=== PATIENT | female | born 1990 | race Asian ===

== ENCOUNTER 2019-02-28 15:42 | Emergency (ER) | payer OTHER ==
[~2019-02-28] VITALS: Ht 162.6 cm; Wt 44.9 kg
[2019-02-28] MEDS ORDERED: LIDOCAINE 2% 20 ML VIAL. IJ STA (16:34)
--- NOTE | 2019-02-28 16:39 | PHYS DOC ---
Adult General Chief Complaint Chief Complaint: ABSCESS HPI HPI Patient is a 29 year old female who presents with left armpit pain this been ongoing for week. The patient states that she has a bump under her left armpit and that it hurts when it's touched. Review of Systems Review of Systems Constitutional: Denies fever or chills [] Eyes: Denies change in visual acuity, redness, or eye pain [] HENT: Denies nasal congestion or sore throat [] Respiratory: Denies cough or shortness of breath [] Cardiovascular: No additional information not addressed in HPI [] GI: Denies abdominal pain, nausea, vomiting, bloody stools or diarrhea [] : Denies dysuria or hematuria [] Musculoskeletal: Denies back pain or joint pain [] Integument: Reports abscess to L armpit. Neurologic: Denies headache, focal weakness or sensory changes [] Complete systems were reviewed and found to be within normal limits, except as documented in this note. Current Medications Current Medications Current Medications Medications (Trade) Dose Ordered Sig/Cecilia Start Time Stop Time Status Last Admin Dose Admin Lidocaine HCl 20 ml 1X STAT 02/28/19 16:34 02/28/19 17:12 DC Allergies Allergies Allergies Coded Allergies Type Severity Reaction Last Updated Verified No Known Drug Allergies 02/28/19 No Physical Exam Physical Exam Constitutional: Well developed, well nourished, no acute distress, non-toxic appearance. [] HENT: Normocephalic, atraumatic, bilateral external ears normal, oropharynx moist, no oral exudates, nose normal. [] Eyes: PERRLA, EOMI, conjunctiva normal, no discharge. [] Skin: Hard to touch nodule that is tender to touch in L axilla. Warm to touch. Neurologic: Alert and oriented X 3, normal motor function, normal sensory function, no focal deficits noted. [] Psychologic: Affect normal, judgement normal, mood normal. [] Current Patient Data Vital Signs Vital Signs Date Time Temp Pulse Resp B/P (MAP) Pulse Ox O2 Delivery O2 Flow Rate FiO2 02/28/19 17:05 98.8 93 16 127/89 (102) 99 Room Air 98.8 EKG EKG [] Radiology/Procedures Radiology/Procedures [] Course & Med Decision Making Course & Med Decision Making Pertinent Labs and Imaging studies reviewed. (See chart for details) Will perform an I/D on L axillary abscess. Will use 2% lidocaine for numbing. Indication: abscess Procedure: The patient was positioned appropriately. Local anesthesia was 2% lidocaine. An incision was then made over the apex of the lesion and exudate material was expressed. The drainage cavity was irrigated and packed with sterile gauze. The patient tolerated the procedure well. Complications: none. Dragon Disclaimer Dragon Disclaimer This electronic medical record was generated, in whole or in part, using a voice recognition dictation system. Departure Departure Impression: Primary Impression: Abscess of axillary region Disposition: HOME, SELF-CARE Condition: STABLE Referrals: NO PCP (PCP) Patient Instructions: Abscess, Abscess, Care After Additional Instructions: Thank you for visiting [facility]. We appreciate you trusting us with your care. If any additional problems come up don't hesitate to return to visit us. Please follow up with your primary care provider so they can plan additional care if needed and know about the problem that you had. If symptoms worsen come back to the Emergency Department. Any concerning symptoms that start such as chest pain, shortness of air, weakness or numbness on one side of the body, running high fevers or any other concerning symptoms return to the ER. You have been prescribed an antibiotic today to help fight your infection. Please take all of the antibiotic as directed. If after 48 hours the infection is not improving, please return for more care. If the infection worsens, return to ER for additional care. Please take the packing out in 2 days. Scripts Cephalexin (KEFLEX) 500 Mg Capsule 1 CAP PO QID for 7 Days, #28 CAP 0 Refills Prov: ELISSA BILLINGS APRN 02/28/19 ELISSA BILLINGS APRN Feb 28, 2019 16:39
[2019-02-28 17:05] VITALS: BP 127/89
[2019-02-28] MEDS ORDERED: CEPH-264 PO (17:16)
== END 2019-02-28 18:10 | disposition home or self-care (01) ==
LOC: EDSEX 15:42 → ER 15:42
DX: M79.622 Pain in left upper arm (principal)
CPT/HCPCS: 10060; 99283

== ENCOUNTER 2020-04-29 19:07 | Emergency (ER) | payer SELFPAY ==
[~2020-04-29] VITALS: Ht 162.6 cm; Wt 45.5 kg
[~2020-04-29 19:07] MED LIST: CEPH-264 PO
[2020-04-29 20:12] LABS: BILIRUBIN,URINE NEGATIVE (NEG); CLARITY,URINE CLEAR; COLOR,URINE YELLOW; NITRITE,URINE NEGATIVE (NEG); PH,URINE 6.5 (<5.0-8.0); PROTEIN,URINE NEGATIVE (NEG-TRACE); UROBILINOGEN,URINE 0.2 mg/dL (0.2 mg/dL)
[2020-04-29 20:19] LABS: BACTERIA,URINE 0 /HPF (0-FEW); WBC,URINE 0 /HPF (0-4)
--- NOTE | 2020-04-29 20:30 | PHYS DOC ---
Past Medical History Past Medical History: No Pertinent History (SAROJ MART APRN) Past Surgical History: No Surgical History (SAROJ MART APRN) Smoking Status: Never Smoker Alcohol Use: None Drug Use: None (SAROJ MART APRN) General Adult EDM: Chief Complaint: VAGINAL BLEEDING HPI: HPI: Patient is a 30 year old female 1 para 0 currently 9 weeks presenting to the ED today complaining of vaginal bleeding in that began today. Patient states it is a dot of blood noted on her underwear and when she wipes herself. Denies any abdominal pain. Denies any nausea vomiting, she states she has not seen her [employer] yet. Patient speaks some Nigerien though her sister was interpreting for Humberto (SAROJ MART APRN) Review of Systems: Review of Systems: Constitutional: Denies fever or chills. [] Eyes: Denies change in visual acuity. [] HENT: Denies nasal congestion or sore throat. [] Respiratory: Denies cough or shortness of breath. [] Cardiovascular: Denies chest pain or edema. [] GI: Reports vaginal bleeding in . Denies abdominal pain, nausea, vomiting, bloody stools or diarrhea. [] : Denies dysuria. [] Musculoskeletal: Denies back pain or joint pain. [] Integument: Denies rash. [] Neurologic: Denies headache, focal weakness or sensory changes. [] Psychiatric: Denies depression or anxiety. [] (SAROJ MART APRN) Heart Score: Risk Factors: Risk Factors: DM, Current or recent (<one month) smoker, HTN, HLP, family history of CAD, obesity. Risk Scores: Score 0 - 3: 2.5% MACE over next 6 weeks - Discharge Home Score 4 - 6: 20.3% MACE over next 6 weeks - Admit for Clinical Observation Score 7 - 10: 72.7% MACE over next 6 weeks - Early Invasive Strategies (SAROJ MART APRN) Allergies: Allergies: Allergies Coded Allergies Type Severity Reaction Last Updated Verified No Known Drug Allergies 02/28/19 No (SAROJ MART APRN) Physical Exam: PE: Constitutional: Well developed, well nourished, no acute distress, non-toxic appearance. [] HENT: Normocephalic, atraumatic, bilateral external ears normal, oropharynx moist, no oral exudates, nose normal. [] Eyes: PERRLA, EOMI, conjunctiva normal, no discharge. [] Neck: Normal range of motion, no tenderness, supple, no stridor. [] Cardiovascular:Heart rate regular rhythm, no murmur [] Lungs & Thorax: Bilateral breath sounds clear to auscultation [] Abdomen: Bowel sounds normal, soft, no tenderness, no masses, no pulsatile mass es. [] Pelvic exam External pelvic appears normal, cervix is visualized, there is small amount of blood in the cervical os, no CMT, no adnexal tenderness. Skin: Warm, dry, no erythema, no rash. [] Back: No tenderness, no CVA tenderness. [] Extremities: No tenderness, no cyanosis, no clubbing, ROM intact, no edema. [] Neurologic: Alert and oriented X 3, normal motor function, normal sensory function, no focal deficits noted. [] Psychologic: Affect normal, judgement normal, mood normal. [] (SAROJ MART APRN) Current Patient Data: Labs: Laboratory Tests Test 04/29/20 19:13 04/29/20 19:18 Urine Collection Type Unknown Urine Color Yellow Urine Clarity Clear Urine pH 6.5 (<5.0-8.0) Urine Specific [place] <=1.005 (1.000-1.030) Urine Protein Negative mg/dL (NEG-TRACE) Urine Glucose (UA) Negative mg/dL (NEG) Urine Ketones (Stick) Negative mg/dL (NEG) Urine Blood Large (NEG) Urine Nitrite Negative (NEG) Urine Bilirubin Negative (NEG) Urine Urobilinogen Dipstick 0.2 mg/dL (0.2 mg/dL) Urine Leukocyte Esterase Negative (NEG) Urine RBC 1-2 /HPF (0-2) Urine WBC 0 /HPF (0-4) Urine Squamous Epithelial Cells Occ /LPF Urine Bacteria 0 /HPF (0-FEW) POC Urine HCG, Qualitative Hcg positive (Negative) Microbiology 04/29/20 Wet Prep - Final, Complete Vital Signs: Vital Signs Date Time Temp Pulse Resp B/P (MAP) Pulse Ox O2 Delivery O2 Flow Rate FiO2 04/29/20 19:15 98.3 88 20 118/73 (88) 99 Room Air 98.3 (SAROJ MART APRN) EKG: EKG: [] (SAROJ MART APRN) Radiology/Procedures: Radiology/Procedures: []PROCEDURE: OB <14 WKS W/TV Study: US OB <14 WKS +TV DATE: 04/29/2020 7:57 PM INDICATION: Vaginal bleeding. COMPARISON: None. TECHNIQUE: Transabdominal and transvaginal ultrasonography of the pelvis was performed. Color Doppler and duplex were utilized as appropriate. FINDINGS: Abnormally elongated intrauterine gestational sac containing a pole with no detectable heart tones. [place]-rump length measured at 2.51 cm which would correspond to an estimated gestational age of 9 weeks 2 days. The uterus measures 11.5 x 5.5 x 6.8 cm. No uterine parenchymal abnormality. Neither ovary was able to be visualized due to bowel gas. IMPRESSION: 1. Sonographic findings consistent with a failed first trimester with an intrauterine pole exhibiting a crown-rump length of 2.5 cm with no detectable heart tones. 2. Neither ovary was able to be visualized due to bowel gas. Electronically signed by: YOSEF COTTRELL MD (04/29/2020 8:30 PM) [facility] DICTATED and SIGNED BY: YOSEF COTTRELL MD DATE: 04/29/[id number] 0 (SAROJ MART APRN) Course & Med Decision Making: Course & Med Decision Making Pertinent Labs and Imaging studies reviewed. (See chart for details) This is a 30-year-old female patient presenting to the ED today with vaginal bleeding in that began today. Positive urine hCG, beta-hCG 4145. CBC CMP with no acute findings, UA negative. Wet prep negative. OB ultrasound noted for failed IUP. No heart tones. Spoke to patient about her results. Informed that she is having a miscarriage. Recommended bedrest. Follow-up with [employer]. Provided return precautions. (SAROJ MART APRN) [place] Disclaimer: Elisha Disclaimer: This electronic medical record was generated, in whole or in part, using a voice recognition dictation system. (SAROJ MART APRN) Departure Departure Impression: Primary Impression: Miscarriage Disposition: 01 DC HOME SELF CARE/HOMELESS Condition: STABLE Referrals: NO PCP (PCP) EMMANUELLE HORTON Jr, MD follow up in the course of this week Patient Instructions: Miscarriage, [id number] Additional Instructions: You were evaluated in the emergency room for vaginal bleeding, the ultrasound we did today shows you have are having a miscarriage. You will bleed gradually more and more in the next 1 week. You may develop some abdominal cramping, please take Tylenol or Motrin for pain. Please follow-up with the provided [employer]. Come back to the ED if you start soaking more than 1 feminine pad an hour. Come back to the ED if you have uncontrolled pain. Attending Signature Attending Signature I have reviewed the PA/EDGING SUPERVISOR's note and plan of care. I was available for consultation as needed during the patient's visit in the emergency department. I agree with the clinical impression, plan, and disposition. (ELISSA OLMOS DO) SAROJ MART APRN Apr 29, 2020 20:30 ELISSA OLMOS DO Apr 30, 2020 01:00
[2020-04-29 20:34] LABS: BASO % 0 % (0-3); EOS % 1 % (0-3); HEMATOCRIT 40.6 % (36.0-47.0); HEMOGLOBIN 13.9 g/dL (12.0-15.5); LYMPH % 31 % (24-48); MEAN CORPUSCULAR HEMOGLOBIN 30 pg (25-35); MEAN CORPUSCULAR HGB CONC 34 g/dL (31-37); MEAN CORPUSCULAR VOLUME 88 fL (79-100); MONO # 0.5 x10^3/uL (0.0-1.1); MONO % 7 % (0-9); NEUT # 3.9 x10^3/uL (1.8-7.7); NEUT % 61 % (31-73); PLATELET COUNT 184 x10^3/uL (140-400); RED BLOOD COUNT 4.62 x10^6/uL (3.50-5.40); RED CELL DISTRIBUTION WIDTH 13.6 % (11.5-14.5); WHITE BLOOD COUNT 6.4 x10^3/uL (4.0-11.0)
[2020-04-29 20:41] LABS: CALCIUM 8.6 mg/dL (8.5-10.1); CREATININE 0.6 mg/dL (0.6-1.0); POTASSIUM 3.6 mmol/L (3.5-5.1)
[2020-04-29 20:49] LABS: ALBUMIN 3.7 g/dL (3.4-5.0); ALBUMIN/GLOBULIN RATIO 0.9 (1.0-1.7); TOTAL BILIRUBIN 0.3 mg/dL (0.2-1.0); TOTAL PROTEIN 7.8 g/dL (6.4-8.2)
[2020-04-29 21:46] VITALS: BP 105/66
== END 2020-04-29 22:10 | disposition home or self-care (01) ==
LOC: ER 19:07
DX: O03.9 Complete or unspecified spontaneous abortion without complication (principal); Z3A.09 9 weeks gestation of pregnancy
CPT/HCPCS: 36415; 76801; 76817; 80053; 81001; 81025; 84702; 85025; 86850; 86900; 86901; 87491; 87591; 99285; Q0111